=== PATIENT | female | born 1930 | race Caucasian/White ===

== ENCOUNTER 2018-11-06 19:53 | Emergency (ER) | payer MEDICARE, MEDICAID ==
[~2018-11-06] VITALS: Ht 172.7 cm; Wt 64.4 kg
[2018-11-06 20:13] VITALS: BP 100/68
--- NOTE | 2018-11-06 20:16 | NUR ---
RADIOLOGY AT BEDSIDE FOR XRAY
--- NOTE | 2018-11-06 20:40 | NUR ---
CALLED [facility] FOR S TRANSPORT. ETA 2026 TRIP# [id number]
== END 2018-11-06 23:09 | disposition home or self-care (01) ==
LOC: ER 20:00
DX: T82.838A Hemorrhage due to vascular prosthetic devices, implants and grafts, initial encounter (principal); F03.90 Unspecified dementia, unspecified severity, without behavioral disturbance, psychotic disturbance, mood disturbance, and anxiety; I25.10 Atherosclerotic heart disease of native coronary artery without angina pectoris; M81.0 Age-related osteoporosis without current pathological fracture; M19.90 Unspecified osteoarthritis, unspecified site; I48.91 Unspecified atrial fibrillation; Z86.73 Personal history of transient ischemic attack (TIA), and cerebral infarction without residual deficits; Z88.0 Allergy status to penicillin
CPT/HCPCS: 71045-TC